=== PATIENT | male | born 1945 | race Caucasian/White ===

== ENCOUNTER 2018-10-15 07:01 | Day surgery (SDC) | payer MEDICARE, BC ==
[~2018-10-15] VITALS: Ht 172.7 cm; Wt 97.4 kg
[~2018-10-15 07:01] MED LIST: ASPIRIN 32325 MG/TAB PO; CRESTOR 10MG10 MG; HCTZ12.5TAB; PREDNISONE20 MG PO; TENORMIN 5050 MG/TAB; TENORMIN0.5 MG/ML; UNKNOWN PAIN MED; UROXATRAL10 M1 PO; ZYLOPRIM 300MG300 MG
[2018-10-15] MEDS ORDERED: PRILOSEC 20MG20 MG PO (07:14)
[2018-10-15] MEDS ORDERED: LIPITOR 40MG TA40 MG PO (07:14)
[2018-10-15] MEDS ORDERED: NORVASC 5MG5 MG/TAB PO (07:14)
[2018-10-15] MEDS ORDERED: MOTRIN 200200 MG/TAB PO (07:15)
[2018-10-15 07:34] VITALS: BP 142/85; PULSE 79; TEMP 98.3
[2018-10-15 08:50] VITALS: BP 104/70; PULSE 65; TEMP 97.1
--- NOTE | 2018-10-15 08:50 | NUR ---
0850-Patient arrived to [facility] [place] [facility], s/p colonoscopy with Dr. Ariza. Report received from KAILEE Baker. Patient ambulated from cart to chair with minimal assistance. He remains drowsy although responds easily to verbal stimuli. Denies having any pain or nausea. brought back to sit with him. Given apple juice to drink per request.
[2018-10-15 09:05] VITALS: BP 119/79; PULSE 65; TEMP 97.1
--- NOTE | 2018-10-15 09:05 | NUR ---
0905-Vitals remain stable and patient is doing well. Tolerated juice without any nausea or vomiting. Declines wanting anything to eat as they are going out for breakfast. 0910-IV site removed and tip of catheter intact. Gauze and pressure applied. No bleeding noted. Patient is getting dressed and ready for discharge home.
[2018-10-15 09:20] VITALS: BP 133/84; PULSE 61; TEMP 97.4
--- NOTE | 2018-10-15 09:20 | NUR ---
0920-Patient is dressed and ready for discharge home. Vitals remain stable. No significant changes in status. 0930-Discharge instructions discussed with patient and his . Both verbalized understanding and deny having any questions or concerns at this time. 0935-Taken via wheelchair and assisted into private vehicle with his . Belongings and discharge instructions with him.
== END 2018-10-15 09:35 | disposition home or self-care (01) ==
LOC: SDCO 07:01
DX: R19.5 Other fecal abnormalities (principal); I25.10 Atherosclerotic heart disease of native coronary artery without angina pectoris; I10 Essential (primary) hypertension; E66.09 Other obesity due to excess calories; Z68.32 Body mass index [BMI] 32.0-32.9, adult; Z80.41 Family history of malignant neoplasm of ovary; Z80.42 Family history of malignant neoplasm of prostate; Z80.0 Family history of malignant neoplasm of digestive organs; Z80.8 Family history of malignant neoplasm of other organs or systems; Z82.49 Family history of ischemic heart disease and other diseases of the circulatory system; Z79.82 Long term (current) use of aspirin
CPT/HCPCS: J2704; J7030